=== PATIENT | female | born 1995 | race American Indian/Alaskan Native ===

== ENCOUNTER 2018-10-13 06:46 | Emergency (ER) | payer OTHER ==
[2018-10-13 06:51] VITALS: BP 132/74
[2018-10-13] MEDS ORDERED: TYLENOL PO ONE (07:30)
[2018-10-13 07:35] LABS: Basophils # (Auto) 0.1 K/mm3 (0.0-0.1); Basophils % (Auto) 0.9 % (0.0-1.8); Eosinophils # (Auto) 0.3 K/mm3 (0.0-0.4); Eosinophils % (Auto) 4.3 % (0.0-4.3); Hematocrit 32.5 % (30.3-42.9); Hemoglobin 10.6 gm/dl (10.1-14.3); Lymphocytes # (Auto) 1.6 K/mm3 (1.2-5.4); Lymphocytes % (Auto) 24.5 % (13.4-35.0); Mean Corpuscular HGB Conc 33 % (30-34); Mean Corpuscular Volume 73 fl (79-97); Monocytes # (Auto) 0.4 K/mm3 (0.0-0.8); Monocytes % (Auto) 5.9 % (0.0-7.3); Platelet Count 363 K/mm3 (140-440); Red Blood Count 4.47 M/mm3 (3.65-5.03); Red Cell Distribution Width 20.7 % (13.2-15.2)
--- NOTE | 2018-10-13 07:54 | Emergency Department Report ---
ED HPI - General Chief complaint: Vaginal Bleeding Stated complaint: ABD PAIN/BLEEDING/10WKS PREG Time Seen by Provider: 10/13/18 07:10 Source: patient Mode of arrival: Ambulatory Limitations: No Limitations - History of Present Illness Initial comments: This is a 23-year-old female nontoxic, well nourished in appearance, no acute signs of distress presents to the ED with c/o of vaginal bleeding and pelvic pain x1 day. Patient denies any abdominal pain. Patient denies any vaginal discharge or foul odor. Patient denies any nausea, vomiting, chest pain, shortness of breathe, fever, chills, headache, stiff neck, numbness, tingling. P atient denies any urinary symptoms. Patient stated allergies to amoxicillin. MD Complaint: vaginal bleeding, other (pelvic pain) -: days(s) (1) Location: pelvis Radiation: none Severity: mild Severity scale (0 -10): 3 Quality: cramping, aching Consistency: constant Improves with: none Worsens with: none Associated symptoms: vaginal bleeding. denies: nausea/vomiting, vaginal discharge, abdominal pain, dysuria, headache, vision changes, malaise, dysparuenia, rash, seizure, shortness of breath, syncope, weakness Vaginal bleeding: light :: Yes Number of weeks : 10 Pre-ken care: followed by OB - Related Data Allergies Allergy/AdvReac Type Severity Reaction Status Date / Time amoxicillin [From Amoxil] Allergy Itching Verified 10/13/18 06:54 ED Review of Systems ROS: Stated complaint: ABD PAIN/BLEEDING/10WKS PREG Other details as noted in HPI Constitutional: denies: chills, fever Eyes: denies: eye pain, eye discharge, vision change ENT: denies: ear pain, throat pain Respiratory: denies: cough, shortness of breath, wheezing Cardiovascular: denies: chest pain, palpitations Endocrine: no symptoms reported Gastrointestinal: denies: abdominal pain, nausea, diarrhea Genitourinary: abnormal menses. denies: urgency, dysuria, discharge Musculoskeletal: denies: back pain, joint swelling, arthralgia Skin: denies: rash, lesions Neurological: denies: headache, weakness, paresthesias Psychiatric: denies: anxiety, depression Hematological/Lymphatic: denies: easy bleeding, easy bruising ED Past Medical Hx - Past Medical History Previous Medical History?: No - Surgical History Past Surgical History?: No - Social History Smoking Status: Never Smoker Substance Use Type: None ED Physical Exam - General Limitations: No Limitations General appearance: alert, in no apparent distress - Head Head exam: Present: atraumatic, normocephalic - Neck Neck exam: Present: normal inspection, full ROM. Absent: tenderness, meningismus, lymphadenopathy - GI/Abdominal GI/Abdominal exam: Present: soft, normal bowel sounds. Absent: distended, tenderness, guarding, rebound, rigid, diminished bowel sounds - Extremities Exam Extremities exam: Present: normal inspection, full ROM, normal capillary refill. Absent: tenderness - Back Exam Back exam: Present: normal inspection, full ROM. Absent: tenderness, CVA tenderness (R), CVA tenderness (L), muscle spasm, paraspinal tenderness, vertebral tenderness, rash noted - Neurological Exam Neurological exam: Present: alert, oriented X3, normal gait - Psychiatric Psychiatric exam: Present: normal affect, normal mood - Skin Skin exam: Present: warm, dry, intact, normal color. Absent: rash ED Course Vital Signs 10/13/18 06:48 Temperature 97.9 F Pulse Rate 91 H Respiratory 18 Rate Blood Pressure 132/74 O2 Sat by Pulse 96 Oximetry - Reevaluation(s) Reevaluation #1: 10/13/18 07:53 Patient is speaking in full sentences with no signs of distress noted. ED Medical Decision Making - Lab Data Result diagrams: 10/13/18 07:07 - Medical Decision Making This is a 23-year-old female presents with spontaneous miscarriage. Patient is stable and was examined by me. Normal abdominal exam. US OB obtained and dictated by the radiologist. Ua obtained. Quantative serum test obtained and negative for . Patient notified of the US report with no questions noted by the patient. Patient was instructed f/u with [facility] in 3-5 days. RH factor positive. Labs within normal limits. At time of discharge, the patient does not seem toxic or ill in appearance. No acute signs of distress noted. Patient agrees to discharge treatment plan of care. No further questions noted by the patient. Critical care attestation.: If time is entered above; I have spent that time in minutes in the direct care of this critically ill patient, excluding procedure time. ED Disposition Clinical Impression: Spontaneous miscarriage Disposition: DC-01 TO HOME OR SELFCARE Is pt being admited?: No Does the pt Need Aspirin: No Condition: Stable Instructions: Spontaneous Miscarriage (ED) Additional Instructions: Follow-up with a [facility] doctor in 3-5 days or if symptoms worsen and continue return to emergency room as soon as possible. Referrals: PRIMARY CAREMD [Primary Care Provider] - 3-5 Days KUNAL CARREON MD [Staff Physician] - 3-5 Days [facility] [Provider Group] - 3-5 Days Forms: Work/School Release Form(ED)
--- NOTE | 2018-10-13 09:04 | Ultrasound Report ---
US pelvic complete, US transvaginal INDICATION / CLINICAL INFORMATION: vaginal bleedign. COMPARISON: None available. FINDINGS: Uterus is mildly enlarged. There is no evidence of an intrauterine or retained products of conception. A small amount of free fluid is seen in the pelvis. The ovaries are normal in size and ap pearance. Endometrial thickness is 9 mm. IMPRESSION: No evidence of an intrauterine or retained products of conception. A small amount of free f luid is present in the pelvis. Signer Name: Ayaan Martines MD FACR Signed: 10/13/2018 9:00 AM Workstation Name: [id number]
[2018-10-13 10:05] LABS: Bacteria,Urine 2+ /HPF (Negative); Bilirubin,Urine NEG (Negative); Blood,Urine LG (Negative); Color,Urine Red (Yellow); Mucus,Urine FEW /HPF; Urobilinogen,Urine < 2.0 mg/dL (<2.0)
[2018-10-13 10:07] LABS: RBC,Urine > 182.0 /HPF (0.0-6.0)
== END 2018-10-13 09:31 | disposition home or self-care (01) ==
LOC: ED 06:46
DX: O03.9 Complete or unspecified spontaneous abortion without complication (principal); Z88.1 Allergy status to other antibiotic agents; Z3A.10 10 weeks gestation of pregnancy
CPT/HCPCS: 36415; 76830; 76856; 81001; 84702; 85025; 86900; 86901; 99284

== ENCOUNTER 2021-08-29 20:01 | Emergency (ER) | payer OTHER ==
[2021-08-29 20:45] VITALS: BP 122/69
== END 2021-08-30 07:00 | disposition left against medical advice (07) ==
LOC: ED 20:01
DX: O26.891 Other specified pregnancy related conditions, first trimester (principal); R51.9 Headache, unspecified; Z3A.01 Less than 8 weeks gestation of pregnancy